=== PATIENT | male | born 1990 | race Caucasian/White ===

== ENCOUNTER 2017-07-05 00:22 | Emergency (ER) | payer SELFPAY ==
--- NOTE | 2017-07-05 00:47 | ED Physician Documentation ---
PD HPI ABD PAIN - Stated complaint Stated Complaint: ABDOMINAL PAIN - Chief complaint Chief Complaint: Abd Pain - History obtained from History obtained from: Patient - History of Present Illness Timing - onset: Today (onset this morning of right abd pain, persistent. Without vomiting nor diarrhea.) Timing - duration: Hours Timing - details: Gradual onset, Still present, Waxing and waning Quality: Cramping, Aching, Pain Location: RLQ (right mid abdomen, not just RLQ.) Radiation: No: Right flank Improved by: Position (lying flat and on side feels better). No: Eating Worsened by: Moving (hurts more with walking), Palpation. No: Eating, Breathing , Position Associated symptoms: Nausea, Loss of appetite. No: Fever, Vomiting, Diarrhea, Constipation (last BM was yesterday and normal), Melena, Dysuria, Chest pain, Weight loss Similar symptoms before: No diagnosis (had similar episode couple years ago for few days without specific diagnosis. Had labs and was told his LFTs were elevated. Otherwise no firm Dx. No interval problems with diarrhea, blood in stools, pains, vomiting.) Recently seen: Not recently seen Review of Systems Constitutional: denies: Fever, Chills Nose: denies: Rhinorrhea / runny nose, Congestion Throat: denies: Sore throat Respiratory: denies: Cough GI: reports: Abdominal Pain, Nausea. denies: Abdominal Swelling, Vomiting, Constipation, Diarrhea : denies: Dysuria, Frequency Skin: denies: Rash, Lesions Musculoskeletal: denies: Back pain Neurologic: denies: Generalized weakness, Near syncope Endocrine: denies: Weight loss Immunocompromised: denies: Immunocompromised PD PAST MEDICAL HISTORY - Past Medical History Past Medical History: No Cardiovascular: None Respiratory: None GI: None - Past Surgical History Past Surgical History: No - Present Medications Home Medications: Ambulatory Orders Medication Instructions Recorded Confirmed Docusate Sodium 100 mg PO DAILY #20 capsule 07/05/17 HYDROcod/ACETAM 5/325 [Clayton 5/325] 1 tab PO Q6H PRN #15 tablet 07/05/17 Metronidazole [Flagyl] 500 mg PO BID #14 tablet 07/05/17 Naproxen [Naprosyn] 500 mg PO BID #20 tablet 07/05/17 - Allergies Allergies/Adverse Reactions: Allergies Allergy/AdvReac Type Severity Reaction Status Date / Time Penicillins AdvReac Unknown Verified 10/18/15 18:54 - Social History Does the pt smoke?: Yes Smoking Status: Current every day smoker Does the pt drink ETOH?: No Does the pt have substance abuse?: No - Family History Family history: denies: Aortic aneursym, Aortic dissection - Immunizations Immunizations are current?: Yes - POLST Patient has POLST: No PD ED PE NORMAL - Vitals Vital signs reviewed: Yes - General General: Alert and oriented X 3, Well developed/nourished, Other (appears in pain) - HEENT HEENT: PERRL (nonicteric), Pharynx benign - Neck Neck: Supple, no meningeal sign, No adenopathy - Cardiac Cardiac: RRR (but tachycardic), No murmur - Respiratory Respiratory: Clear bilaterally - Abdomen Abdomen: Soft, Non distended, No organomegaly, Other (tender right mid abdomen, higher than McBurneys area. No CVA tenderness. ). No: Normal bowel sounds ( increased on right side) - Male Male : Deferred - Rectal Rectal: Deferred - Back Back: No CVA TTP - Derm Derm: Normal color, Warm and dry, No rash - Neuro Neuro: Alert and oriented X 3, No motor deficit, Normal speech Results - Vitals Vitals: Vital Signs - 24 hr 07/05/17 00:28 Temperature 36.3 C L Heart Rate 120 H Respiratory 18 Rate Blood Pressure 119/83 H O2 Saturation 99 Oxygen O2 Source Room air - Labs Labs: Laboratory Tests 07/05/17 07/05/17 07/05/17 00:50 00:52 00:52 WBC 13.3 H RBC 4.91 Hgb 15.7 Hct 45.2 MCV 92.0 MCH 32.0 H MCHC 34.8 RDW 12.3 Plt Count 293 MPV 8.3 Neut # 8.4 H Lymph # 3.4 Guadalupe # 1.2 H Eos # 0.2 Baso # 0.1 Absolute Nucleated RBC 0.00 Nucleated RBC % 0.0 Sodium 136 Potassium 3.7 Chloride 102 Carbon Dioxide 26 Anion Gap 8.0 BUN 20 Creatinine 1.0 Estimated GFR (MDRD) 89 Glucose 87 Calcium 8.8 Total Bilirubin 1.4 H AST 23 ALT 22 Alkaline Phosphatase 77 Total Protein 7.5 Albumin 4.4 Globulin 3.1 Albumin/Globulin Ratio 1.4 Lipase 21 L Urine Color YELLOW Urine Clarity CLEAR Urine pH 6.0 Ur Specific [place]lysses 1.025 Urine Protein NEGATIVE Urine Glucose (UA) NEGATIVE Urine Ketones NEGATIVE Urine Occult Blood NEGATIVE Urine Nitrite NEGATIVE Urine Bilirubin NEGATIVE Urine Urobilinogen 0.2 (NORMAL) Ur Leukocyte Esterase NEGATIVE Ur Microscopic Review NOT INDICATED Urine Culture Comments NOT INDICATED - Rads (name of study) KUB CT Radiology: Prelim report reviewed (no stones. Appendix partly seen and is normal. Segment of a/f levels on right c/w enteritis/colitis. ) PD MEDICAL DECISION MAKING - ED course Complexity details: reviewed results, re-evaluated patient (feeling better with IV meds. Recheck abd less tender. No peritoneal findings. Consider colitis/ enteritis, with pain just on right without vomiting/diarrhea. could be immune related such as UC/Crohns. Does not seem like viral GE. Not stones, GB, nor appendix. ), considered differential, d/w patient Departure - Departure Disposition: 01 Home, Self Care Clinical Impression: Right sided abdominal pain, Colitis Clinical Impression: (Ruled Out): Appendicitis, Ureterolithiasis Condition: Stable Record reviewed to determine appropriate education?: Yes Instructions: Abdominal Pain, ED Colitis Ulcerative Prescriptions: Docusate Sodium 100 mg PO DAILY #20 capsule HYDROcod/ACETAM 5/325 [Clayton 5/325] 1 tab PO Q6H PRN #15 tablet PRN Reason: Pain Metronidazole [Flagyl] 500 mg PO BID #14 tablet Naproxen [Naprosyn] 500 mg PO BID #20 tablet Comments: Your CT scan shows an area of inflammation of the colon, called colitis. Since it is localized and not part of "stomach flu" symptoms such as vomiting and diarrhea, I be concern for a local infection of the wall of the colon. For that would use some anti-inflammatories such as naproxen twice daily for 7-10 days, an antibiotic metronidazole twice daily for a week, and a stool softener docusate 100 mg daily for 1 or 2 weeks. Add Tylenol or hydrocodone if needed for pain. Drink lots of fluids. Recheck if not improved in the next couple of days. Return sooner if increased pain, fevers, bloody stool, other concerns. On the CT scan your appendix appeared normal and there are no signs of kidney stones.
[2017-07-05] MEDS ORDERED: SODIUM CHLORIDE 0.9% 1,000 ML IV ONE (01:00)
[2017-07-05] MEDS ORDERED: HYDROmorphone 1 MG/ML SYRINGE IVP STA (01:01)
[2017-07-05] MEDS ORDERED: KETOROLAC 60 MG/2 ML VIAL IVP STA (01:02)
[2017-07-05 01:05] LABS: BILIRUBIN,URINE NEGATIVE (NEGATIVE)
[2017-07-05 01:05] LABS: BASOPHILS # (AUTO) 0.1 10^3/uL (0.0-0.1); BASOPHILS % (AUTO) 0.8 %; EOSINOPHILS # (AUTO) 0.2 10^3/uL (0.0-0.7); EOSINOPHILS % (AUTO) 1.2 %; HCT - HEMATOCRIT 45.2 % (42.0-52.0); HGB - HEMOGLOBIN 15.7 g/dL (14.0-18.0); LYMPHOCYTES # (AUTO) 3.4 10^3/uL (1.5-3.5); LYMPHOCYTES % (AUTO) 25.6 %; MEAN CORPUSCULAR HGB CONC 34.8 g/dL (32.0-36.0); MEAN PLATELET VOLUME 8.3 fL (7.4-11.4); MONOCYTES # (AUTO) 1.2 10^3/uL (0.0-1.0); NEUTROPHILS # (AUTO) 8.4 10^3/uL (1.5-6.6); NEUTROPHILS % (AUTO) 63.4 %; RED BLOOD COUNT 4.91 10^6/uL (4.70-6.10); RED CELL DISTRIBUTION WIDTH 12.3 % (12.0-15.0); UNCORRECTED WHITE BLOOD COUNT 13.3 x10^3/uL; WHITE BLOOD COUNT 13.3 x10^3/uL (4.8-10.8)
[2017-07-05 01:06] LABS: UA CHARGE (STRIP ONLY) YES; UR CULTURE IF IND NOT INDICATED
[2017-07-05 01:08] LABS: ALBUMIN/GLOBULIN RATIO 1.4 (1.0-2.2); BILIRUBIN,TOTAL 1.4 mg/dL (0.2-1.0); CALCIUM 8.8 mg/dL (8.5-10.3); POTASSIUM 3.7 mmol/L (3.5-5.0); TOTAL PROTEIN 7.5 g/dL (6.7-8.2)
[2017-07-05] MEDS ORDERED: KETOROLAC 30 MG/ML VIAL ONE (01:09)
[2017-07-05] MEDS ORDERED: HYDROmorphone 1 MG/ML SYRINGE ONE (01:09)
--- NOTE | 2017-07-05 01:49 | CT Preliminary Report ---
Exam: CT KUB IMPRESSION: 1. No urolithiasis seen. 2. Multiple nonspecific fluid-filled small bowel loops with some air-fluid levels. Enteritis could peraza ve this appearance. 3. Appendix is partially seen and visualized portions appear normal. 4. Multiple coarse calcifications in the liver measuring up to about 2 cm, of uncertain etiology. [facility] SITE ID: [id number]
--- NOTE | 2017-07-05 01:52 | CT Report ---
EXAM: CT ABDOMEN AND PELVIS (CT KUB) EXAM DATE: 07/05/2017 01:26 AM. CLINICAL HISTORY: Right sided abd pain since about 4 pm. COMPARISONS: None. TECHNIQUE: Routine axial helical CT imaging was performed through the abdomen and pelvis without IV c ontrast. Reconstructions: Coronal and sagittal. In accordance with CT protocol optimization, one or more of the following dose reduction techniques w ere utilized for this exam: automated exposure control, adjustment of mA and/or KV based on patient s ize, or use of iterative reconstructive technique. FINDINGS: Lung Bases: Unremarkable. Right Kidney/Ureter: No stones, hydronephrosis, or hydroureter. No perinephric fat stranding. Left Kidney/Ureter: No stones, hydronephrosis, or hydroureter. No perinephric fat stranding. Other Solid Organs: Multiple coarse calcifications in the liver measuring up to about 2 cm. Spleen, p ancreas, and adrenals show no focal abnormalities on this noncontrast examination. Gallbladder/Bile Ducts: Unremarkable. Peritoneal Cavity: Multiple nonspecific nondilated fluid-filled small bowel loops with some air-fluid levels. No definite bowel obstruction. No diverticulitis. No free air or free fluid. Appendix is par tially seen and visualized portions appear normal. Pelvic Organs: No bladder stones or wall thickening. Noncontrast images of the visualized pelvic orga ns are unremarkable. Vasculature: Unremarkable. Other: None. IMPRESSION: 1. No urolithiasis seen. 2. Multiple nonspecific fluid-filled small bowel loops with some air-fluid levels. Enteritis could peraza ve this appearance. 3. Appendix is partially seen and visualized portions appear normal. 4. Multiple coarse calcifications in the liver measuring up to about 2 cm, of uncertain etiology. [facility] Referring Provider Line: [phone] SITE ID: [id number]
[2017-07-05] MEDS ORDERED: metroNIDAZOLE 250 MG TABLET PO STA (02:01)
[2017-07-05] MEDS ORDERED: HYDROcod/ACET 5/325 Prepack 6 PO ONE ×2 (02:01→02:09)
[2017-07-05] MEDS ORDERED: DOCUSATE SODIUM 100 MG CAPSULE PO STA (02:06)
[2017-07-05] MEDS ORDERED: metroNIDAZOLE 250 MG TABLET PO ONE (02:09)
[2017-07-05] MEDS ORDERED: DOCUSATE SODIUM 100 MG CAPSULE PO ONE (02:13)
[2017-07-05 02:22] VITALS: BP 118/79
== END 2017-07-05 02:22 | disposition home or self-care (01) ==
LOC: ED 00:22
DX: K52.9 Noninfective gastroenteritis and colitis, unspecified (principal); R10.31 Right lower quadrant pain; F17.200 Nicotine dependence, unspecified, uncomplicated
CPT/HCPCS: 36415; 74176; 80053; 81003; 83690; 85025; 85651; 86140; 96361; 96374; 96375; 99283; 99284; A9270; J1170; 81001; 87086

== ENCOUNTER 2017-12-10 17:47 | Emergency (ER) | payer MEDICAID ==
--- NOTE | 2017-12-10 17:53 | ED Physician Documentation ---
PD HPI HEENT - Stated complaint Stated Complaint: TOOTH PX - History obtained from History obtained from: Patient - History of Present Illness Timing - onset: How many days ago (2) Timing - duration: Days (2) Timing - details: Gradual onset (his tooth broke 2 days ago and has been hurting a lot since. Pain worse today and has some mild swelling of the gum. His mother is with him and says she will try to get him to dentist in the next couple of days.) Improves: No: Medication (ibuprofen not effective) Associated symptoms: No: Fever, Congestion Similar symptoms before: Has not had sx before Recently seen: Not recently seen Review of Systems Constitutional: denies: Fever, Chills, Myalgias Throat: reports: Dental pain / toothache (right lower molar). denies: Sore throat PD PAST MEDICAL HISTORY - Past Medical History Cardiovascular: None Respiratory: None GI: None - Past Surgical History Past Surgical History: No - Present Medications Home Medications: Ambulatory Orders Medication Instructions Recorded Confirmed Clindamycin HCl [Cleocin HCl] 300 mg PO TID #18 capsule 12/10/17 Oxycodone HCl/Acetaminophen 1 each PO Q6H PRN #20 tablet 12/10/17 [Percocet 5-325 mg Tablet] - Allergies Allergies/Adverse Reactions: Allergies Allergy/AdvReac Type Severity Reaction Status Date / Time Penicillins AdvReac Unknown Verified 12/10/17 17:57 - Social History Does the pt smoke?: Yes Smoking Status: Current every day smoker Does the pt drink ETOH?: No Does the pt have substance abuse?: No - Immunizations Immunizations are current?: Yes - POLST Patient has POLST: No PD ED PE NORMAL - Vitals Vital signs reviewed: Yes - General General: Alert and oriented X 3, Well developed/nourished, Other (appears in pain) - HEENT HEENT: Pharynx benign. No: Dentition benign (right lower 2nd molar with prior filling but there is fracture of buccal side of the tooth with hollow present. There is mild swelling and tendernees of the gum as well. No fluctuance. No noted draiange. ) - Neck Neck: Supple, no meningeal sign, No adenopathy - Cardiac Cardiac: RRR, No murmur - Respiratory Respiratory: Clear bilaterally - Derm Derm: Normal color, Warm and dry Results - Vitals Vitals: Vital Signs - 24 hr 12/10/17 17:55 Temperature 36.6 C Heart Rate 70 Respiratory 16 Rate Blood Pressure 150/94 H O2 Saturation 100 Oxygen O2 Source Room air Procedures - Regional nerve block Nerve block site: Inferior alveolar Right / left: Right Nerve block anesthesia: Lidocaine 2% Nerve block aftercare: Moderate Anesthesia PD MEDICAL DECISION MAKING - ED course Complexity details: considered differential, d/w patient Departure - Departure Disposition: 01 Home, Self Care Clinical Impression: Pain, dental, Dental infection Condition: Stable Record reviewed to determine appropriate education?: Yes Instructions: ED Tooth Pain Prescriptions: Clindamycin HCl [Cleocin HCl] 300 mg PO TID #18 capsule Oxycodone HCl/Acetaminophen [Percocet 5-325 mg Tablet] 1 each PO Q6H PRN #20 tablet PRN Reason: Pain Comments: Try not to chew on that side and allow the temporary filling to stay in place. He can replace it if it does follow-up prematurely before seeing the dentist. He can use topical numbing such as benzocaine or Anbesol. Continue ibuprofen 3 times a day. Add Tylenol or Percocet if needed for pain. It does seem swollen and there is a likely an early infection and use clindamycin 3 times a day until gone. Follow-up with a dentist as soon as you are able to make an appointment. Discharge Date/Time: 12/10/17 18:20
[2017-12-10 17:58] VITALS: BP 150/94
[2017-12-10] MEDS ORDERED: oxyCOD/ACETAMIN 5 MG/325 MG TABLET PO STA (18:04)
[2017-12-10] MEDS ORDERED: oxyCODONE/ACET 5/325 Prepack 4 PO STA (18:04)
[2017-12-10] MEDS ORDERED: CLINDAMYCIN 150 MG CAPSULE PO STA (18:04)
== END 2017-12-10 18:20 | disposition home or self-care (01) ==
LOC: ED 17:47
DX: K04.7 Periapical abscess without sinus (principal); K03.81 Cracked tooth; F17.200 Nicotine dependence, unspecified, uncomplicated
CPT/HCPCS: 64400; 99281; 99283; A9270

== ENCOUNTER 2019-01-14 21:55 | Emergency (ER) | payer MEDICAID ==
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
--- NOTE | 2019-01-14 22:45 | XRAY Report ---
Reason: pain when bearing weight Procedure Date: 01/14/2019 Accession Number: [id number] / [id number] Procedure: XR - Hip w/Pelvis 2-3V RT CPT Code: FULL RESULT: EXAM: RIGHT HIP AND PELVIS RADIOGRAPHY EXAM DATE: 01/14/2019 10:26 PM. CLINICAL HISTORY: Pain when bearing weight. COMPARISON: None. TECHNIQUE: 1 view each of the pelvis and hip. FINDINGS: Bones: No fracture seen. No acute osseous abnormality. Joints: No dislocation seen. Joint spaces are fairly well preserved. Possible mild femoroacetabular impingement. Soft Tissues: Normal. No soft tissue swelling. IMPRESSION: 1. No acute abnormality seen. 2. Possible mild femoroacetabular impingement syndrome. [facility]
[2019-01-14] MEDS ORDERED: KETOROLAC 60 MG/2 ML VIAL IM STA (22:47)
[2019-01-14] MEDS ORDERED: oxyCODONE 5 MG TABLET PO STA (23:16)
[2019-01-14 23:25] VITALS: BP 126/84
== END 2019-01-14 23:25 | disposition home or self-care (01) ==
LOC: ED 21:55
DX: M25.551 Pain in right hip (principal); F17.200 Nicotine dependence, unspecified, uncomplicated
CPT/HCPCS: 73502; 96372; 99283; A9270

== ENCOUNTER 2019-10-27 17:36 | Emergency (ER) | payer MEDICAID ==
[2019-10-27 17:49] VITALS: BP 131/80
--- NOTE | 2019-10-27 17:49 | ED Physician Documentation ---
PD HPI URI - Stated complaint Stated Complaint: SORE THROAT - History obtained from History obtained from: Patient - History of Present Illness Timing - onset: How many days ago (several) Timing duration: Days Timing details: Gradual onset, Still present Associated symptoms: Fever (mild), Sore throat, Swollen nodes. No: Nasal congestion, Rhinorrhea, Sinus pain, Dry cough Contributing factors: No: Sick contact, Travel, Immunocompromised Similar symptoms before: Diagnosis (feels similar to strep throats he had as younger and teenager.) Review of Systems Constitutional: reports: Fever Nose: denies: Rhinorrhea / runny nose, Congestion Throat: reports: Sore throat, Swollen tonsils Respiratory: denies: Cough PD PAST MEDICAL HISTORY - Past Medical History Cardiovascular: None Respiratory: None GI: None - Past Surgical History Past Surgical History: No - Present Medications Home Medications: Ambulatory Orders Medication Instructions Recorded Confirmed Ibuprofen [Motrin] 800 mg PO Q8H PRN #30 tablet 01/14/19 Cephalexin [Keflex] 500 mg PO TID #20 capsule 10/27/19 Hydrocodone/Acetaminophen 1 each PO Q6H PRN #12 tablet 10/27/19 [Hydrocodon-Acetaminophen 5-325] dexAMETHasone [Decadron] 4 mg PO DAILY #5 tablet 10/27/19 - Allergies Allergies/Adverse Reactions: Allergies Allergy/AdvReac Type Severity Reaction Status Date / Time Penicillins AdvReac Unknown Verified 10/27/19 17:48 - Social History Does the pt smoke?: Yes Smoking Status: Current every day smoker Does the pt drink ETOH?: No Does the pt have substance abuse?: No - Immunizations Immunizations are current?: Yes - POLST Patient has POLST: No PD ED PE NORMAL - Vitals Vital signs reviewed: Yes - General General: Alert and oriented X 3, No acute distress, Well developed/nourished - HEENT HEENT: Ears normal, Moist mucous membranes. No: Pharynx benign (tonsils red with some white exudate, but only mildly enlarged. Mild redness just adjacent to tonsil on right. No deviation of the tonsil. ) - Neck Neck: Supple, no meningeal sign, Other (anterior adenopathy right>left. ) Results - Vitals Vitals: Vital Signs - 24 hr 10/27/19 17:48 Temperature 36.8 C Heart Rate 112 H Respiratory 14 Rate Blood Pressure 131/80 H O2 Saturation 99 Oxygen O2 Source Room air - Labs Labs: Laboratory Tests 10/27/19 17:52 Group A Strep Rapid Negative PD MEDICAL DECISION MAKING - ED course Complexity details: considered differential (clinically with 3/4 Centor and not c/w general URI. ), d/w patient Departure - Departure Disposition: 01 Home, Self Care Clinical Impression: Acute pharyngitis Qualifiers: Pharyngitis/tonsillitis etiology: unspecified etiology Qualified Code(s): J02.9 - Acute pharyngitis, unspecified Condition: Stable Record reviewed to determine appropriate education?: Yes Instructions: ED Strep Pharyngitis Poss Prescriptions: Cephalexin [Keflex] 500 mg PO TID #20 capsule dexAMETHasone [Decadron] 4 mg PO DAILY #5 tablet Hydrocodone/Acetaminophen [Hydrocodon-Acetaminophen 5-325] 1 each PO Q6H PRN #12 tablet PRN Reason: pain Comments: Your rapid strep test is negative but the throat looks suspicious for bacterial pharyngitis. The culture results will be available in 2 to 3 days. Meanwhile we can treat with antibiotic as well as anti-inflammatory and pain medicine. If the culture comes back negative, we can always stop the antibiotic at that point. Drink lots of fluids. Stay well-hydrated. Medications as directed. Tylenol or ibuprofen if needed for fevers and pains. Discharge Date/Time: 10/27/19 18:22
[2019-10-27] MEDS ORDERED: DEXAMETHASONE 10 MG/ML VIAL PO STA (18:01)
[2019-10-27] MEDS ORDERED: IBUPROFEN 600 MG TABLET PO STA (18:01)
[2019-10-27] MEDS ORDERED: cephALEXin 250 MG CAPSULE PO STA (18:01)
[2019-10-27] MEDS ORDERED: ACETAMINOPHEN 325 MG TABLET PO STA (18:01)
[2019-10-27] MEDS ORDERED: CHERRY SYRUP 10 ML UDC PO ONE (18:01)
[2019-10-27 18:06] LABS: RAPID STREP SCREEN Negative (Negative)
== END 2019-10-27 18:22 | disposition home or self-care (01) ==
LOC: ED 17:36
DX: J02.9 Acute pharyngitis, unspecified (principal); F17.210 Nicotine dependence, cigarettes, uncomplicated
CPT/HCPCS: 87070; 87430; 99283; A9270

== ENCOUNTER 2021-04-01 19:10 | Outpatient (CLI) | payer MEDICAID | END 2021-04-01 19:11 | disposition EMS.NT | LOC: EMS 19:10 | DX: R06.00 Dyspnea, unspecified (principal) ==

== ENCOUNTER 2021-04-01 20:17 | Emergency (ER) | payer OTHER, MEDICAID ==
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
[2021-04-01] MEDS ORDERED: ACETAMINOPHEN 325 MG TABLET PO STA (20:44)
[2021-04-01] MEDS ORDERED: LIDOCAINE-EPINEPH-TETRACAINE 3 ML SYRINGE TOP STA (20:44)
[2021-04-01 21:24] VITALS: BP 106/79
== END 2021-04-01 21:24 | disposition home or self-care (01) ==
LOC: ED 20:17
DX: S01.01XA Laceration without foreign body of scalp, initial encounter (principal); X99.8XXA Assault by other sharp object, initial encounter; Y92.009 Unspecified place in unspecified non-institutional (private) residence as the place of occurrence of the external cause; F17.200 Nicotine dependence, unspecified, uncomplicated
CPT/HCPCS: 12001; 99282; 99283; A9270

== ENCOUNTER 2021-09-26 18:27 | Emergency (ER) | payer MEDICAID ==
[2021-09-26 18:35] VITALS: BP 129/84
[2021-09-26] MEDS ORDERED: ACETAMINOPHEN 325 MG TABLET PO STA (19:00)
[2021-09-26] MEDS ORDERED: DOXYCYCLINE 100 MG TABLET PO STA (19:00)
--- NOTE | 2021-09-26 19:01 | ED Physician Documentation ---
PD HPI WOUND RECHECK - Stated complaint Stated Complaint: SKIN INF,NEED MEDS - Chief complaint Chief Complaint: Wound - Histroy obtained from History obtained from: Patient - Additional information Additional information: He has a skin infection on the right leg. He was seen at [facility] by 2 weeks ago and put on doxycycline but lost the prescription thereafter. He was getting better actually got worse again and requests a refill. He states no culture was done previously. No systemic symptoms or fevers. Review of Systems Constitutional: reports: Reviewed and negative Ears: reports: Reviewed and negative Nose: reports: Reviewed and negative Throat: reports: Reviewed and negative PD PAST MEDICAL HISTORY - Past Medical History Cardiovascular: None Respiratory: None GI: None - Past Surgical History Past Surgical History: No - Present Medications Home Medications: Ambulatory Orders Medication Instructions Recorded Confirmed Doxycycline Hyclate 100 mg PO BID #20 tab.sr 09/26/21 - Allergies Allergies/Adverse Reactions: Allergies Allergy/AdvReac Type Severity Reaction Status Date / Time Penicillins AdvReac Unknown Verified 09/26/21 18:35 - Social History Does the pt smoke?: Yes Smoking Status: Current every day smoker Does the pt drink ETOH?: No Does the pt have substance abuse?: No - Immunizations Immunizations are current?: Yes - POLST Patient has POLST: No PD ED PE NORMAL - Vitals Vital signs reviewed: Yes - General General: Alert and oriented X 3, No acute distress - Extremities Extremities: Other (Is an area to the right lateral calf that looks like impetigo, about 3 x 2 cm with crusty yellow drainage. A culture was done during exam. No spreading cellulitis other than that.) - Neuro Neuro: Alert and oriented X 3, Normal speech Results - Vitals Vitals: Vital Signs - 24 hr 09/26/21 18:31 Temperature 36.8 C Heart Rate 105 H Respiratory 16 Rate Blood Pressure 129/84 H O2 Saturation 99 Oxygen O2 Source Room air PD MEDICAL DECISION MAKING - ED course ED course: 31-year-old gentleman with limited area of impetigo which was resolving with doxycycline but then lost the prescription and this is refilled. A culture was taken. No evidence of sepsis. Departure - Departure Disposition: 01 Home, Self Care Clinical Impression: Impetigo Condition: Good Record reviewed to determine appropriate education?: Yes Instructions: Impetigo Prescriptions: Doxycycline Hyclate 100 mg PO BID #20 tab.sr Comments: I sent your prescription electronically to [facility] in [place]. We are performing a wound culture, the results should be done in 48-72 hours. If antibiotic change is necessary we will call you. Return if worse in the meantime, especially if you develop increased pain, fevers, cannot keep down the medication. Otherwise follow-up with your physician in approximately 2-3 days. Discharge Date/Time: 09/26/21 19:06
== END 2021-09-26 19:06 | disposition home or self-care (01) ==
LOC: ED 18:27
DX: L01.00 Impetigo, unspecified (principal); F17.200 Nicotine dependence, unspecified, uncomplicated
CPT/HCPCS: 87070; 87205; 99282; 99283; A9270

== ENCOUNTER 2022-05-21 14:37 | Emergency (ER) | payer MEDICAID ==
[2022-05-21 14:46] VITALS: BP 117/72
--- NOTE | 2022-05-21 15:10 | ED Physician Documentation ---
PD HPI HEENT - Stated complaint Stated Complaint: FACE PX - Chief complaint Chief Complaint: Wound - History obtained from History obtained from: Patient - Additional information Additional information: Patient is a 32-year-old male with left-sided dental pain for the last 2 days. He has had on and off dental pain For months. The left upper molar has been bothering him for the last 2 days. He has been able to eat and drink. He does not currently have a dentist. Review of Systems Constitutional: denies: Fever Throat: reports: Dental pain / toothache Cardiac: denies: Chest pain / pressure Respiratory: denies: Dyspnea GI: denies: Abdominal Pain Musculoskeletal: denies: Back pain Neurologic: denies: Headache PD PAST MEDICAL HISTORY - Past Medical History Cardiovascular: None Respiratory: None GI: None - Past Surgical History Past Surgical History: No - Present Medications Home Medications: Ambulatory Orders Medication Instructions Recorded Confirmed clindamycin HCL [Cleocin HCl] 300 mg PO QID #28 cap 05/21/22 - Allergies Allergies/Adverse Reactions: Allergies Allergy/AdvReac Type Severity Reaction Status Date / Time Penicillins AdvReac Unknown Verified 05/21/22 14:43 - Social History Does the pt smoke?: Yes Smoking Status: Current every day smoker Does the pt drink ETOH?: No Does the pt have substance abuse?: No - Immunizations Immunizations are current?: Yes - POLST Patient has POLST: No PD ED PE NORMAL - General General: Alert and oriented X 3, No acute distress, Well developed/nourished - HEENT HEENT: Atraumatic, Moist mucous membranes, Pharynx benign (No oral swelling, exudate or erythema, normal speech, no signs of airway compromise), Other (No facial cellulitis). No: Dentition benign (Decay to L upper molar (tooth 15); mild tenderness and swelling to gum with no fluctuance) - Neck Neck: Supple, no meningeal sign - Respiratory Respiratory: No respiratory distress - Neuro Neuro: Normal speech Results - Vitals Vitals: Vital Signs - 24 hr 05/21/22 14:44 Temperature 36.3 C L Heart Rate 93 Respiratory 16 Rate Blood Pressure 117/72 O2 Saturation 99 Oxygen O2 Source Room air PD MEDICAL DECISION MAKING - ED course ED course: Pt with L upper molar pain; no drainable collection, signs of deep space Infection, Or airway compromise. Due to patient's penicillin allergy have started him on clindamycin. He was given a list of local dental resources. Pt counseled on concerning symptoms to return for. Departure - Departure Disposition: 01 Home, Self Care Clinical Impression: Dental infection Condition: Stable Instructions: ED Abscess Dental Prescriptions: clindamycin HCL [Cleocin HCl] 300 mg PO QID #28 cap Comments: You have an infection related to one of your teeth. I have Start you on an antibiotic called clindamycin and sent the prescription to [facility] in [place]. Please make sure to complete the course of the antibiotics and follow-up with a dentist. If you have any worsening symptoms such as increased swelling, trouble swallowing or any concerns please return to the emergency department. It is very important that you follow-up with a dentist. When it comes to dental problems like yours, the emergency department can only offer a short-term solution to your long-term problem. A couple of low cost options for dental care include: [facility] in [place], calls [phone] for an appointment Or [facility] in [place], call [phone] for an appointment. Discharge Date/Time: 05/21/22 15:15
== END 2022-05-21 15:15 | disposition home or self-care (01) ==
LOC: ED 14:37
DX: K04.7 Periapical abscess without sinus (principal)
CPT/HCPCS: 99282